=== PATIENT | male | born 2000 | race Caucasian/White ===

== ENCOUNTER 2019-01-16 21:46 | Emergency (ER) | payer OTHER ==
[~2019-01-16] VITALS: Ht 180.3 cm; Wt 72.7 kg
[2019-01-16] MEDS ORDERED: ISOVUE-370 76% 100ML VIAL (Q9967) As Ordered ONE (22:43)
--- NOTE | 2019-01-16 23:57 | REPVR ---
EXAM: CT Head Without Contrast EXAM DATE/TIME: 01/16/2019 10:50 PM CLINICAL HISTORY: 18 years old, male; Pain; Headache not specified; Additional info: Exertional headache TECHNIQUE: Imaging protocol: Axial computed tomography images of the head without contrast. Radiation optimization: All CT scans at this facility use at least one of these dose optimization techniques: automated exposure control; mA and/or kV adjustment per patient size (includes targeted exams where dose is matched to clinical indication); or iterative reconstruction. COMPARISON: No relevant prior studies available. FINDINGS: Brain: The hodge-white differentiation appears preserved. 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 An arachnoid cyst could give a similar appearance. To exclude the possibility of significant pathology suggest correlation with MRI scan with contrast. There is no definite evidence of mass effect. Ventricles: Normal appearing ventricles. Bones/joints: Unremarkable. No acute fracture. Sinuses: Clear paranasal sinuses. Mastoid air cells: Clear mastoid air cells. Soft tissues: Unremarkable. 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 As a precautionary measure suggests correlation with an MRI with contrast. Electronically signed by: Rene Ybarra On 01/16/2019 23:56:32 PM
--- NOTE | 2019-01-17 00:04 | REPVR ---
EXAM: CT Angiography Head With Contrast EXAM DATE/TIME: 01/16/2019 10:50 PM CLINICAL HISTORY: 18 years old, male; Pain; Headache; Additional info: Exertional headache TECHNIQUE: Imaging protocol: Axial computed tomographic angiography images of the head with intravenous contrast using CT angiography protocol. Coronal and sagittal reformatted images were created and reviewed. 3D rendering: MIP and 3D reconstructed images were created and reviewed. Radiation optimization: All CT scans at this facility use at least one of these dose optimization techniques: automated exposure control; mA and/or kV adjustment per patient size (includes targeted exams where dose is matched to clinical indication); or iterative reconstruction. Contrast material: ISOVUE 370; Contrast volume: 75 ml; Contrast route: IV; COMPARISON: No relevant prior studies available. FINDINGS: Right internal carotid artery: Unremarkable. Intracranial segment is patent with no significant stenosis. No aneurysm. Right anterior cerebral artery: Unremarkable. No occlusion or significant stenosis. No aneurysm. Right middle cerebral artery: Unremarkable. No occlusion or significant stenosis. No aneurysm. Right posterior cerebral artery: Unremarkable. No occlusion or significant stenosis. No aneurysm. Right vertebral artery: Unremarkable. No occlusion or significant stenosis. No aneurysm. Left internal carotid artery: Unremarkable. Intracranial segment is patent with no significant stenosis. No aneurysm. Left anterior cerebral artery: Unremarkable. No occlusion or significant stenosis. No aneurysm. Left middle cerebral artery: Unremarkable. No occlusion or significant stenosis. No aneurysm. Left posterior cerebral artery: Unremarkable. No occlusion or significant stenosis. No aneurysm. Left vertebral artery: Unremarkable. No occlusion or significant stenosis. No aneurysm. Basilar artery: Unremarkable. No occlusion or significant stenosis. No aneurysm. IMPRESSION: No acute findings. Electronically signed by: Massiel Dunn On 01/17/2019 00:03:34 AM
[2019-01-17] MEDS ORDERED: IBUP-1022 PO (00:52)
[2019-01-17 01:03] VITALS: BP 128/65
--- NOTE | 2019-01-18 13:07 | ED PDOC ---
Post-Departure Follow-Up sofya abbott faxed formal report of ct head for fu Tequila Liao MD Jan 18, 2019 13:07
== END 2019-01-17 01:04 | disposition home or self-care (01) ==
LOC: M ED 21:46
DX: R51 Headache (principal); Q04.3 Other reduction deformities of brain
CPT/HCPCS: 36415; 70450; 70496; 80047; 99284; Q9967